=== PATIENT | male | born 2005 | race Caucasian/White ===

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

== ENCOUNTER 2024-04-08 19:16 | Emergency (ER) | payer OTHER, SELFPAY ==
[2024-04-08 19:19] VITALS: BP 110/71; PULSE 54; RESP 20; TEMP 36.9; O2SAT 98
[2024-04-08 19:22] VITALS: BP 110/71; PULSE 54; RESP 20; TEMP 36.9; O2SAT 98
--- NOTE | 2024-04-08 19:30 | DI.CT_ITS ---
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 TECHNIQUE: Imaging Protocol: Axial computed tomography images with coronal and sagittal reformatted images were created and reviewed CONTRAST MATERIAL: Intravenous: Omnipaque 350 Contrast volume:100 ml contrast COMPARISON: No exams were available for comparison FINDINGS: Parotids: Normal. Submandibular glands: Normal. Thyroid gland: Normal. Lymph nodes: Reactive lymph nodes, right greater than left, the largest measuring 2 cm.. Carotids arteries: No significant stenosis or dissection. Vertebral arteries: No significant stenosis or dissection. Pharynx: There is swelling of the tonsils, right greater than left. There is an elongated low-densit y collection measuring 2 x 1 x 1 cm in the right tonsil. The floor the mouth is unremarkable. The ad enoids are unremarkable. The epiglottis and vocal cords are within normal limits. Lungs: Images through both lung apices are unremarkable. Bones: Degenerative changes of the cervical spine. Visualized portions of the brain and orbits: Unremarkable. Sinuses and mastoids: Clear. IMPRESSION: Bilateral tonsillitis. 2 centimeter right tonsillar abscess. Reactive cervical lymph nodes, right greater than left. RADIATION DOSE DELIVERED: Total DLP DATA REPOSITORY: All CT scans at this facility are submitted to the National Radiology Data Registry (NRDR) Dose Index Registry (DIR) with the [employer] (ACR). RADIATION OPTIMIZATION: All CT scans at this facility use at least one of these dose optimization te chniques: automated exposure control; mA and/or kV adjustment per patient size (includes targeted exa ms where dose is matched to clinical indication); or iterative reconstruction.
[2024-04-08] MEDS: Normal Saline - Diluent 50 ML VIAL IJ (19:54)
[2024-04-08] MEDS: Normal Saline Flush 10 ML SYR IVP (19:54)
[2024-04-08] MEDS: Omnipaque 350 MG/ML 100 ML BTL IJ (19:54)
--- NOTE | 2024-04-08 20:51 | ED.GENADUL_ITS ---
Discharge Plan Disposition Patient Disposition: Home Condition: Good Discharge Details Clinical Impression: Abscess, peritonsillar Primary Care Provider: Roberto Miller ED Provider: Adrianna Smith Home Meds and New Rx's Prescriptions: New amoxicillin-pot clavulanate 875-125 mg tablet 1 tab PO BID Qty: 18 0RF Discharge Instructions Instructions: Peritonsillar Abscess, Adult (DC) Additional Instructions: Antibiotic twice a day for the next 10 days. One dose of dexamethasone (steroid) tomorrow morning. Tylenol and ibuprofen over the counter for pain; follow the directions on the bottle. Followup with ENT; they should call to schedule an appointment. If you do not hear from them tomorrow, please give them a call. Return to the emergency department for new or worsening symptoms including worsening pain, inability to swallow your spit, difficultly breathing, or if you have any other concerns. Referrals: [facility] [Provider Group] [facility] General Mode of arrival: ambulatory . Date/Time Provider Initiated Documentation: 04/08/24 19:23 . Limitations to Documentation: no limitations . Information obtained by: patient and family . HPI Narrative: 18yo M presenting from with concern for peritonsillar abscess. Several days of worsening sore throat, pain with swallowing, sensation of fullness in throat. No difficultly with secretions. No fevers. No neck pain. Otherwise in his usual state of health. Related Data Home Medications ?Medication ?Instructions ?Recorded ?Confirmed amoxicillin 875 mg-potassium 1 tab PO BID #18 tabs 04/08/24 clavulanate 125 mg tablet Previous Rx's ?Medication ?Instructions ?Recorded amoxicillin 875 mg-potassium 1 tab PO BID #18 tabs 04/08/24 clavulanate 125 mg tablet Allergies Allergy/AdvReac Type Severity Reaction Status Date / Time No Known Allergies Allergy Verified 04/08/24 19:22 General Stated Complaint: Sorethroat FLORENCE: 3 Review of Systems Narrative: see HPI Exam Narrative Exam Narrative: General: Alert, well appearing, well nourished, in no acute distress. Head: Normocephalic, atraumatic Neck: Trachea midline, ?Neck supple. No anterior neck tenderness. ENT: ?MMM.? Right tonsil edematous with white exudate. Right peritonsillar swelling without clear fluctuatance. Uvula significantly deviated. Cardiac: ?RRR, no murmurs appreciated Resp: No respiratory distress. CTAB. Abd: ?Soft, non-distended, nontender : ?No suprapubic tenderness. No CVA tenderness. Extremities: ?No deformities.? No peripheral edema. Neurologic: GCS 15. ? Moves all extremities freely against gravity Course Vital Signs Vital signs: Vital Signs Temperature 36.9 C 04/08/24 19:19 Pulse 54 L 04/08/24 19:19 Respiratory Rate 20 04/08/24 19:19 Blood Pressure 110/71 04/08/24 19:19 Pulse Oximetry 98 04/08/24 19:19 Temperature 36.9 C 04/08/24 19:22 Pulse 54 L 04/08/24 19:22 Respiratory Rate 20 04/08/24 19:22 Blood Pressure 110/71 04/08/24 19:22 Pulse Oximetry 98 04/08/24 19:22 Pain Level 9 04/08/24 19:22 Procedure Abscess Drainage Date of Procedure: 04/08/24 Time of Procedure: 22:15 Provider that performed the procedure: Adrianna Smith Patient Consented: Verbally Location of Exam: Neck/right side (peritonsillar abscess) Indication: Abscess. Local anesthetic: Lidocaine 1% and with epi, Amount of Local Anesthetic Used (mL): 2. Sterility: Non Sterile. Procedure Prep: Hand hygiene and N95 Mask Technique used, needle aspiration. Amount of fluid expressed(mL): 3. Irrigation: no irrigation Packing: None. Outcome: Unsuccessful. Procedure Description Note: Throat pre-treated with benzocaine spray. 2ml lido with epi injected in peritonsillar pillar. Suction placed in left cheek held by RN, pt held Mac 4 larygnescope blade to depress tongue. ~3 cc purlent material aspirated. Uvula now midline. Patient tolerated procedure well Medical Decision Making 18yo M presenting from with concern for peritonsillar abscess. Vital signs reassuring on arrival. Non-toxic on exam, no stridor, no difficultly with secretions. Right tonsillar edema and exudate, right peritonsillar swelling without clear fluctuance or mass, and uvula deviated. 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 No anterior neck tenderness. Unlikely epiglotitis, deep space neck infection, sepsis; would not get labs or cultures. Strep swab was done at and was negative. Given toradol and steroid here. CT here independently reviewed, agree with radiology read of small RUBBER COMPOUNDER MIXER. Drained with needle aspiration, able to obtain ~3-5 cc of purulent material, uvula now midline. PO challenged and tolerated will. Discharged home on course of augmentin and dose of dexamethasone for tomorrow. Instructed to followup with ENT. Discharge i nstructions and return precuations reviewed with patient and family who verbalized understanding. All questions were answered and he is in full agreement with the plan. 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 [employer] [facility] Pets and animals: Yes Pets and animals: cat(s) and dog(s) Sexually active: No Current gender identity: male What is your relationship status?: never Panel score (0-1 are the most socially isolated patients): 0 What type of physical activity do you participate in: regular exercise Seatbelt use: always Helmet use: Yes Do you feel safe at home: Yes Do you feel safe in your relationship?: Yes POCUS Exam (ED) Limited Soft Tissue Exam PROVIDER THAT PERFORMED THE STUDY: Adrianna Smith
--- NOTE | 2024-04-08 20:54 | DI.VRAD_ITS ---
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 Radiation optimization: All CT scans at this facility use at least one of these dose optimization techniques: automated exposure control; mA and/or kV adjustment per patient size (includes targeted exams where dose is matched to clinical indication); or iterative reconstruction. Contrast material: OMNIPAQUE 350; Contrast volume: 100 ml; Contrast route: INTRAVENOUS (IV); COMPARISON: MR upper joint RT wo 05/17/2018 4:59 PM FINDINGS: Salivary glands: Normal. Glands are normal in size. Pharynx: Bilateral tonsillar edema, xubpp-ktlpaqc-tihl-left with large 2 cm right peritonsillar abscess causing narrowing of the right side of the airway. Larynx: Unremarkable. Epiglottis is normal. Thyroid: Normal. No enlarged or calcified nodules. Trachea: Visualized trachea is unremarkable. Lungs: Unremarkable as visualized. Lymph nodes: Bilateral cervical chain lymph nodes, wigze-rwoonzz-tyuo-left measuring up to 2.1 cm, reactive. Impression Bones/joints: Unremarkable. No acute fracture. Soft tissues: Unremarkable. No significant soft tissue swelling. IMPRESSION: Bilateral tonsillar edema, olngk-ajedvoq-drlp-left with large 2 cm right peritonsillar abscess causing narrowing of the right side of the airway. Dictated and Authenticated by: Felicita Lamas MD. Orderin Luis Rodas MD
[2024-04-08] MEDS: methylPREDNISolone SUCC 125 MG VIAL IVP (21:31)
[2024-04-08] MEDS: Ketorolac 15 MG/ML VIAL IVP (21:31)
[2024-04-08] MEDS: Lidocaine 1% Pres-Free W/EPI 1/200,000 30 ML VIAL IJ (21:32)
[2024-04-08] MEDS: Amox. 875/Clav. 125, 2 TABS/BTL 1 TAB PO (22:13)
[2024-04-08] MEDS: Amoxicillin 875/Clav. 125 TAB PO (22:28)
[2024-04-08] MEDS: Dexamethasone 4 MG TAB PO (22:28)
== END 2024-04-09 | disposition home or self-care (01) ==
PROVIDERS: Emergency Provider Student in an Organized Health Care Education/Training Program; PCP Pediatrics
DX: J36 Peritonsillar abscess (principal)
CPT/HCPCS: 12001; 70491; 96374; 96375; 99285; J1885; J2004; J2919; J3490; J8540

== ENCOUNTER 2024-06-01 10:45 | Emergency (ER) | payer OTHER, SELFPAY ==
--- NOTE | 2024-06-01 10:45 | DI.CT_ITS ---
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 TECHNIQUE: Imaging Protocol: Axial computed tomography images with coronal and sagittal reformatted images were created and reviewed. CONTRAST MATERIAL: Intravenous: Omnipaque 350 Contrast volume:100mL COMPARISON: CT CT NECK W from 04/08/2024 FINDINGS: Visualized intracranial structures: Within normal limits. Orbits and orbital soft tissues: Within normal limits. Visualized paranasal sinuses: Within normal limits. Pharynx: The tonsils are enlarged bilaterally, right greater than left. There is a 2.2 x 1.4 by 1.5 cm fluid collection in the right side consistent with a peritonsillar abscess. Larynx: Within normal limits. Retropharyngeal space: Within normal limits. Parotids/submandibular: Within normal limits. Thyroid gland: Within normal limits. Lymphadenopathy: There are enlarged lymph nodes bilaterally near the angle of the mandible. Trachea: Within normal limits. Lung apices: Within normal limits. Bones: Within normal limits for the patient's age. Carotids/Jugular: Within normal limits. Soft tissues: Within normal limits. IMPRESSION: Consistent with tonsillitis with a right peritonsillar abscess measuring 2.2 x 1.4 x 1.5 cm. Reactiv e cervical adenopathy is present. RADIATION DOSE DELIVERED: 343.22mGy.cm Total DLP 343.22mGy.cm Total DLP DATA REPOSITORY: All CT scans at this facility are submitted to the National Radiology Data Registry (NRDR) Dose Index Registry (DIR) with the [employer] (ACR). RADIATION OPTIMIZATION: All CT scans at this facility use at least one of these dose optimization te chniques: automated exposure control; mA and/or kV adjustment per patient size (includes targeted exa ms where dose is matched to clinical indication); or iterative reconstruction.
[2024-06-01 10:48] VITALS: BP 128/76; PULSE 92; RESP 14; TEMP 36.8; O2SAT 96
--- NOTE | 2024-06-01 10:59 | ED.GENADUL_ITS ---
Discharge Plan Disposition Patient Disposition: Home Condition: Stable Discharge Details Clinical Impression: Abscess, peritonsillar Primary Care Provider: Roberto Miller ED Provider: Dany Becker Home Meds and New Rx's Prescriptions: New amoxicillin-pot clavulanate 875-125 mg tablet 1 tab PO BID Qty: 20 0RF Discharge Instructions Additional Instructions: You had a peritonsillar abscess that was drained using aspiration with a needle. Take the antibiotics as prescribed. You should receive a call for follow-up appointment with ENT. You can take 1000 mg of acetaminophen and 600 mg of ibuprofen every 6 hours as needed. You feel more ill, have severe worsening pain or inability to swallow liquids return to the emergency department for reevaluation. Referrals: Joel Espinoza MD [ [facility] STAFF PHYSICIAN] - [facility] General Mode of arrival: ambulatory . Date/Time Provider Initiated Documentation: 06/01/24 10:47 . Limitations to Documentation: no limitations . Information obtained by: patient . History of Present Illness 18 year old M presents to the emergency department with the chief complaint of sore throat, described as moderate, Patient started experiencing this day(s) (3) and it has been constant. No relieving factors improve symptom(s), No exacerbating factors reported . Patient notes denies fever/chills. Patient did receive the following treatments prior to arrival, none Related Data Home Medications ?Medication ?Instructions ?Recorded ?Confirmed amoxicillin 875 mg-potassium 1 tab PO BID #20 tabs 06/01/24 clavulanate 125 mg tablet Previous Rx's ?Medication ?Instructions ?Recorded amoxicillin 875 mg-potassium 1 tab PO BID #20 tabs 06/01/24 clavulanate 125 mg tablet Allergies Allergy/AdvReac Type Severity Reaction Status Date / Time No Known Allergies Allergy Verified 06/01/24 10:52 General Stated Complaint: Sorethroat [place]: 2 Review of Systems All systems reviewed & are unremarkable except as noted in HPI and below Constitutional Constitutional: Denies chills, Denies fever(s) and Denies weakness ENT Ears, Nose, Mouth, and Throat: Reports sore throat Cardiovascular Cardiovascular: Denies chest pain and Denies dyspnea Respiratory Respiratory: Denies cough and Denies dyspnea Gastrointestinal Gastrointestinal: Denies abdominal pain Neurologic Neurologic: Denies weakness Course Vital Signs Vital signs: Vital Signs Temperature 36.8 C 06/01/24 10:48 Pulse 92 H 06/01/24 10:48 Respiratory Rate 14 06/01/24 10:48 Blood Pressure 128/76 06/01/24 10:48 Pulse Oximetry 96 06/01/24 10:48 Temperature 36.8 C 06/01/24 10:48 Temperature Source Oral 06/01/24 10:48 Pulse 92 H 06/01/24 10:48 Respiratory Rate 14 06/01/24 10:48 Blood Pressure 128/76 06/01/24 10:48 Blood Pressure Position Sitting 06/01/24 10:48 Pulse Oximetry 96 06/01/24 10:48 Oxygen Delivery Method Room Air 06/01/24 10:48 Oxygen Flow Rate 0 06/01/24 10:48 Pain Level 7 06/01/24 10:48 Procedure Abscess Drainage Patient Consented: Written Ultrasound: Not used Complications: None Procedure Description Note: I sprayed with benzocaine spray and then injected 2 cc of 2% lidocaine with epinephrine into the right posterior pharynx. I then used an 18-gauge needle and on the third attempt I aspirated 5 cc of purulent material. Patient tolerated well Medical Decision Making 18-year-old male who had a retropharyngeal abscess/drained in March ER, was unable to follow-up with ENT afterwards comes in with several days of worsening right sided throat pain. He denies any high fevers, he is not drooling and has no stridor on exam. His posterior pharynx is erythematous and the uvula is midline currently. I do not see any exudates. He has no restricted neck movements. Given his history we will proceed with CBC, CMP, CT neck. Will give a dose of dexamethasone and ceftriaxone will imaging and labs are pending. CT confirms a right-sided peritonsillar abscess. Patient is stable. He gave written and verbal consent to have it drained. I sprayed with benzocaine spray and then injected 2 cc of 2% lidocaine with epinephrine into the right posterior pharynx. I then used an 18-gauge needle and on the third attempt I aspirated 5 cc of purulent material. Patient tolerated well. I will place him on Augmentin and have him follow-up with ENT. 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
[2024-06-01] MEDS: Dexamethasone 10 MG/ML VIAL IVP (11:11)
[2024-06-01] MEDS: Normal Saline 1,000 ML 1000 ML IV (11:11)
[2024-06-01 11:19] LABS: Abs Immature Grans 0.04 10^3/uL (0.0-0.06); Absolute Basophil Count 0.03 10^3/uL (0.0-0.2); Absolute Eosinophil Count 0.06 10^3/uL (0.0-0.7); Absolute Lymphocyte Count 1.44 10^3/uL (1.2-3.4); Absolute Monocyte Count 1.14 10^3/uL (0.1-0.8); Absolute Neutrophil Count 8.43 10^3/uL (1.2-6.7); Basophils % 0.3 %; Eosinophils % 0.5 %; HGB 14.5 g/dL (13.5-17.5); Immature Grans % 0.4 %; Lymphocytes % 12.9 %; MCH 29.5 pg (27.0-33.0); MCHC 34.5 % (32.0-36.0); MCV 86 fL (80-95); Monocytes % 10.2 %; Neutrophils % 75.7 %; Platelet Count 158 10^3/uL (130-400); RBC 4.91 10^6/uL (4.36-5.78); RDW 11.8 % (11.8-14.1); RDW-SD 36.7 fL; WBC 11.13 10^3/uL (4.4-10.8)
[2024-06-01] MEDS: Omnipaque 350 MG/ML 100 ML BTL IJ (11:29)
[2024-06-01] MEDS: Normal Saline - Diluent 50 ML VIAL IJ (11:30)
[2024-06-01 11:34] LABS: ALT 28 U/L (16-63); AST 16 U/L (15-37); Albumin 3.5 g/dL (3.4-5.0); Alkaline Phosphatase 64 U/L (46-116); Anion Gap 8.1 mmol/L (3-11); BUN 7 mg/dL (7-18); Bilirubin, Total 0.6 mg/dL (0.2-1.0); CO2 28.9 mmol/L (21.0-32.0); CREATININE 0.8 mg/dL (0.70-1.30); Chloride 102 mmol/L (98-107); Estimated GFR 130.74 (mL/min/1.73m2); Glucose 95 mg/dL (74-106); Potassium 3.2 mmol/L (3.5-5.1); Sodium 139 mmol/L (136-145); Total Protein 7.3 g/dL (6.4-8.2)
[2024-06-01] MEDS: cefTRIAXone 2 GM/50 ML BAG IVPB (11:38)
[2024-06-01 11:43] VITALS: BP 136/66; PULSE 70; O2SAT 99
[2024-06-01 12:01] VITALS: BP 128/68; PULSE 76; O2SAT 97
[2024-06-01 12:31] VITALS: BP 132/76; PULSE 70; O2SAT 96
[2024-06-01 13:01] VITALS: BP 133/62; PULSE 81
[2024-06-01] MEDS: Benzocaine 20% 60 ML CAN (13:29)
== END 2024-06-01 13:31 | disposition home or self-care (01) ==
PROVIDERS: Emergency Provider Emergency Medicine; PCP Pediatrics
DX: J36 Peritonsillar abscess (principal)
CPT/HCPCS: 10160; 70491; 80053; 96365; 96375; 99284; 99285; 83735; 85025; J0696; J1100; J3490

== ENCOUNTER 2024-10-06 08:39 | Day surgery (SDC) | payer OTHER, SELFPAY ==
[2024-10-06] VITALS (17 sets, daily range): BP systolic 106–121; BP diastolic 52–67; PULSE 56–90; RESP 16–26; TEMP 35.9–37.4; O2SAT 95–100; BMI 26.9
[2024-10-06] MEDS: Lactated Ringers 1,000 ML 50 ML IV (09:15)
--- NOTE | 2024-10-06 09:57 | PDOC.DSDIS_ITS ---
Date of service: 10/06/24 Discharge Plan Disposition Patient Disposition: Home Condition: Good Discharge Details Reason For Visit: Tonsillectomy Attending Provider: Joel Espinoza Primary Care Provider: Roberto Miller Home Meds and New Rx's Prescriptions: No Action No Known Home Meds Discharge Instructions Additional Instructions: My cell phone number is [phone]. Please call with any questions or concerns. If you are unable to reach me and you feel it is an emergency, please call 911 or proceed to the emergency room. If you fill the narcotic prescription, please ask for a Narcan at the same time in case of respiratory depression or excess sedation No strenuous activity or work for 2 weeks Stand Alone Forms: ENT- T&A Instr. Alexis Referrals: Joel Espinoza MD [ [facility] STAFF PHYSICIAN, ENT Surgical] Referral Note: 1 month, please call for appointment prior to patient's departure if appointment is not already made
--- NOTE | 2024-10-06 10:49 | W.ANESPRE ---
General Info Date of Service Date Performed: 10/06/24 Height: 6 ft 2 in Weight: 95.1 kg Body Mass Index (BMI): 26.9 Surgical Procedure: Operation Date: 10/06/24 11:25 Proposed Procedure Side Surgeon p Tonsillectomy & Adenoidectomy Joel Espinoza MD Meds Allergies and Home Medications Allergies Allergy/AdvReac Type Severity Reaction Status Date / Time No Known Allergies Allergy Verified 10/06/24 09:06 Home Medication ?Medication ?Instructions ?Recorded Unknown [No Known Home Meds] 09/22/24 Current Visit Medications: Current Medications Generic Name Dose Route Start Last Admin Trade Name Freq PRN Reason Stop Dose Admin Ringer's Solution 1,000 mls @ 50 mls/hr 10/06/24 06:00 10/06/24 09:15 IV 10/06/24 23:59 50 mls/hr INFUSION DOTTY Administration Cefazolin Sodium/Dextrose 2 gm in 50 mls @ 100 mls/hr 10/06/24 06:00 Ancef Duplex IVPB 10/06/24 23:59 PREOP DOTTY Tranexamic Acid/Sodium Chloride 1,000 mg in 100 mls @ 600 mls/hr 10/06/24 06:00 IVPB 10/06/24 18:00 PREOP DOTTY IV Miscellaneous Supplies 1 each 10/06/24 06:00 Iv Access IV 10/06/24 23:59 DIRECTED DOTTY Sodium Chloride 0 ml 10/06/24 06:00 Normal Saline Flush 10 Ml Syr IV 10/06/24 23:59 PRN PRN Sodium Chloride 0 ml 10/06/24 06:00 Normal Saline 10 Ml Vial IJ 10/06/24 23:59 DIRECTED PRN Sterile Water 0 ml 10/06/24 06:00 Water,Injection,Sterile 10 Ml Vial IJ 10/06/24 23:59 DIRECTED PRN PFSH Active Problems Active Problems: Problem Status Onset Code Strep throat Acute J02.0 Recurrent peritonsillar abscess Acute J36 No-show for appointment Acute Z91.199 Family history of Zzkou-Dojrywqds-Ovxwg (WPW) syndrome Chronic Z82.49 Medical History Medical History Gastroesophageal reflux disease (05/05/15) with a paternal history of Menetrier disease 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 unsure of family hx of WPW Surgical History Surgical History Hx of hand surgery History of circumcision Tobacco Smoking/Tobacco Use Status: Never Passive smoking exposure: No Second hand exposure: No Alcohol Alcohol Intake: never Substance Use Substance use: Never Substance use type: does not use Vital Signs and Lab Results Vital Signs Most Recent Vital Signs in EMR: Most Recent Vital Signs Temp Pulse Resp BP Pulse Ox 35.9 C L 90 18 121/67 100 10/06/24 08:48 10/06/24 08:48 10/06/24 08:48 10/06/24 08:48 10/06/24 08:48 Anesthesia Assessment and Plan Anesthesia History Personal History: No History of Anesthesia Complications Family History: No Family History of Anesthesia Complications Exercise Tolerance Exercise Tolerance: Metabolic Equivalents>4 Pertinent Negatives Pertinent Negatives: No Symptoms of GERD Cardiac & Pulmonary Exam Cardiac Exam: Normal S1/S2 Heart Sounds (Father has Hx of PWP) Pulmonary Exam: Clear Bilateral Breath Sounds Implantable Cardiac Device Does patient have a Pacemaker or an ICD?: No Airway Exam Known Difficult Airway: No Mallampati Class: 2 Mouth Opening: Normal (> 3cm) Thyromental Distance: Greater than 3 cm Neck Range of Motion: Full ROM Neck Circumference: Normal Teeth Condition: Normal Dentition ASA Classification ASA Score: ASA 2 Emergency Case?: No NPO Status NPO Status: NPO Clears >2 hours, Solids >8 hours Anesthesia Plan Resuscitation Status: Full Code Anesthesia Technique: General Anesthesia Airway Planned: Endotracheal Tube Monitors Used: Standard Monitors
--- NOTE | 2024-10-06 11:02 | ROE_ITS ---
Operative Note Operative Note PRE-OP DIAGNOSIS: Recurrent peritonsillar abscess POST-OP DIAGNOSIS: same PROCEDURE: Tonsillectomy SURGEON: Joel Espinoza ANESTHESIA TYPE: General LMA/ETT Refer to Anesthesia Record ESTIMATED BLOOD LOSS: 50 PATHOLOGY: other (Left and right tonsils) COMPLICATIONS: None Patient was transported to: PACU Patient's condition: stable Indications: The patient has had recurring peritonsillar abscesses on the right. Options were explained to the family given inflammation. The patient elected to undergo the above procedure. Consent was filled out and signed prior to procedure. H&P was reviewed. There have been no changes. All questions were answered. The risks of narcotics were discussed. The fact that I would be leaving town on for 10 days was reiterated, and that we would be asking [facility] general surgery and [facility] ENT to cover in my absence was reviewed. Findings: No active abscess, dense scar tissue along the right superior and middle lateral tonsil bed. Palate intact to inspection and palpation. Atrophic adenoids, no inflammation Procedure Description: After obtaining an adequate level of general endotracheal anesthesia the patient was positioned in a supine position and prepped and draped in appropriate fashion. A Gato Adams mouthgag was carefully introduced into the oral cavity and opened revealed the soft and hard palate which were examined revealing no evidence of an occult cleft palate. Each tonsil was injected in the submucosal plane around the tonsil using 0.5% Marcaine with 1/100,000 epinephrine. The right tonsil was approached first. A 12 blade was used to incise mucosa along the superior, anterior, and posterior edges of the tonsil. A Tequila elevator was used to disarticulate the right tonsil from the tonsillar bed, revealing dense scar tissue throughout the bed but no evidence of residual abscess. Once the tonsil had been dissected free from the superior tonsillar fossa, a Us blade was used to strip the tonsil free from the tonsillar fossa down towards the inferior pole at which point in time a tonsillar snare was used to amputate the tonsil from the tonsillar fossa. Attention was then turned to the opposite side where the same was repeated but without encountering any significant scar tissue. Electrocautery suction tip catheter set on 15 W coagulation was used to achieve hemostasis within the tonsillar beds. Valsalva failed to induce any further bleeding. Cardiovis mouthgag was relaxed and reopened revealing no ble eding. As such, the mouthgag was relaxed and removed and the patient was then awakened and extubated by anesthesia and taken the recovery room in stable condition. I was present throughout the entire case. Date of Procedure: 10/06/24
[2024-10-06] MEDS: ceFAZolin 2 GM/50 ML BAG IVPB (11:30)
[2024-10-06] MEDS: TRANEXAMIC ACID/SOD. CHL. 1,000 MG/100 ML BAG 600 MG IVPB (11:40)
--- NOTE | 2024-10-06 11:49 | TONSIL_PTH ---
PATIENT: Chris Meehan LOC: [facility] U#:[id number] AGE/SX: 19/M ROOM: RE10/06/[address]: Joel Espinoza MD : 2005 BED: DIS: 10/06/2024 SPEC #: [id number] RECD: 10/06/24 13:05 STATUS: MARINA REQ #: [id number] LOUIE: 10/06/24 11:[address]: Joel Espinoza DEPT: Surgical Specimen RECD BY: Robina Prescott ENTERED: 10/06/24 13:07 SP TYPE: TONSIL OTHR DR: Roberto Miller MD Tissues: 1 - TONSIL AGE 17 & OVER 2 - TONSIL AGE 17 & OVER Procedures: GROSS AND MICRO LEVEL 3 Comments: [id number]
[2024-10-06] MEDS: Bupivacaine 0.5% Pres-Free W/EPI 10 ML VIAL (11:58)
--- NOTE | 2024-10-06 12:17 | W.PM.DSUDISC ---
Date of service: 10/06/24 Discharge Plan Disposition Patient Disposition: Home Condition: Good Discharge Details Reason For Visit: Tonsillectomy Attending Provider: Joel Espinoza Primary Care Provider: Roberto Miller Home Meds and New Rx's Prescriptions: No Action No Known Home Meds Discharge Instructions Additional Instructions: My cell phone number is [phone]. Please call with any questions or concerns. If you are unable to reach me and you feel it is an emergency, please call 911 or proceed to the emergency room. If you fill the narcotic prescription, please ask for a Narcan at the same time in case of respiratory depression or excess sedation No strenuous activity or work for 2 weeks Stand Alone Forms: ENT- T&A InstrBraden Espinoza Referrals: Joel Espinoza MD [ [facility] STAFF PHYSICIAN, ENT Surgical] Referral Note: 1 month, please call for appointment prior to patient's departure if appointment is not already made Discharge Orders Discharge Orders: Discharge Order (Routine); Ordered 10/06/24 Ordered By: Joel Espinoza
[2024-10-06] MEDS: ACETAMINOPHEN 1,000 MG/100 ML BAG 400 MG IVPB (12:27)
--- NOTE | 2024-10-06 13:17 | W.ANESPOSTOP ---
Postoperative Evaluation Date, Time and Location Date Performed: 10/06/24 Time Performed: 13:18 Patient Location: Day Surgery Unit Vital Signs Most Recent Imported Vital Signs: Most Recent Vital Signs Temp Pulse Resp BP Pulse Ox 36.5 C 56 L 16 110/60 99 10/06/24 13:00 10/06/24 13:00 10/06/24 13:00 10/06/24 13:00 10/06/24 13:00 Pain Score Most Recent Pain Score: Most Recent Pain Score Pain Level 6 10/06/24 13:00 Assessment Mental Status: Awake (Alert & Oriented to Patient Baseline) Airway and Respiratory Function: Patent airway with normal (patient baseline) respiratory exam Cardiovascular Function: Hemodynamically Stable Hydration Status: Adequately Hydrated Nausea & Vomiting: No Nausea or Vomiting Pain: Pain is tolerable per patient Peripheral Nerve Block: Patient did not receive a nerve block
== END 2024-10-06 13:43 | disposition home or self-care (01) ==
PROVIDERS: PCP Pediatrics; Visit Provider Otolaryngology
PROC: (CPT 42826; principal; 2024-10-06 11:15)
DX: J36 Peritonsillar abscess (principal)
CPT/HCPCS: 42826; 88304; J0131; J0690; J1100; J2003; J2405; J2704; J3010